=== PATIENT | female | born 1995 | race Caucasian/White ===

== ENCOUNTER 2017-08-31 22:08 | Emergency (ER) | payer OTHER ==
[~2017-08-31] VITALS: Ht 170.2 cm; Wt 69.9 kg
[2017-08-31 22:10] VITALS: TEMP 98.2
[2017-08-31 22:32] LABS: PLATELET COUNT 241 K/uL (152-353)
[2017-08-31 22:38] LABS: POTASSIUM 3.2 mmol/L (3.6-5.2)
[2017-09-01 00:49] VITALS: BP 104/71
== END 2017-09-01 01:16 | disposition short-term general hospital (02) ==
LOC: ED 22:08
DX: S02.32XA Fracture of orbital floor, left side, initial encounter for closed fracture (principal); Y09 Assault by unspecified means
CPT/HCPCS: 36415; 80053; 80307; 80320; 81000; 85027; 99285

== ENCOUNTER 2017-09-01 01:18 | Outpatient (CLI) | payer OTHER | END 2017-09-01 02:28 | disposition short-term general hospital (02) | LOC: AMB 01:18 | DX: S02.32XA Fracture of orbital floor, left side, initial encounter for closed fracture (principal); Y09 Assault by unspecified means | CPT/HCPCS: A0425; A0429 ==

== ENCOUNTER 2022-03-29 17:56 | Emergency (ER) | payer OTHER ==
[~2022-03-29] VITALS: Ht 170.2 cm; Wt 74.8 kg
[2022-03-29 18:02] VITALS: TEMP 98.5
[2022-03-29 19:29] LABS: POTASSIUM 3.4 mmol/L (3.6-5.2)
[2022-03-29 19:37] LABS: PLATELET COUNT 255 K/uL (152-353)
[2022-03-29 21:50] VITALS: BP 118/76
== END 2022-03-29 21:59 | disposition home or self-care (01) ==
LOC: ED 17:56
PROVIDERS: Emergency Medicine
DX: R10.32 Left lower quadrant pain (principal); Z32.02 Encounter for pregnancy test, result negative
CPT/HCPCS: 80053; 81000; 81025; 82150; 83690; 85027; 96374; 96375; 99284; J1170; J1885; J2405; Q9963